=== PATIENT | female | born 1940 | race Caucasian/White ===

== ENCOUNTER 2019-02-28 13:53 | Emergency (ER) | payer MEDICARE ==
[~2019-02-28] VITALS: Ht 149.9 cm; Wt 56.0 kg
[~2019-02-28 13:53] MED LIST: AMLO-218 PO; ASPI-817 PO; ATOR20TA38 PO; HYDR12.58 PO; IBUP-1542 PO; METF-849 PO; OXYC-279 PO
[2019-02-28 14:08] VITALS: Ht 149.9 cm; Wt 56.0 kg
[2019-02-28] MEDS ORDERED: KETOROLAC 30 MG INJ IM STA (14:57)
[2019-02-28 17:45] VITALS: BP 152/87; PULSE 75; RESP 18
== END 2019-02-28 17:45 | disposition home or self-care (01) ==
LOC: E/R 13:53
DX: K40.91 Unilateral inguinal hernia, without obstruction or gangrene, recurrent (principal); I10 Essential (primary) hypertension; Z79.82 Long term (current) use of aspirin; Z79.84 Long term (current) use of oral hypoglycemic drugs
CPT/HCPCS: 74176; 96372; 99285; J1885